=== PATIENT | male | born 1965 | race Two or more races ===

== ENCOUNTER 2019-07-18 07:11 | Outpatient (CLI) | payer OTHER ==
[~2019-07-18] VITALS: Ht 152.4 cm; Wt 78.0 kg
== END 2019-07-18 12:54 | disposition home or self-care (01) ==
LOC: OFIC 805 07:11
DX: H70.12 Chronic mastoiditis, left ear (principal); H61.23 Impacted cerumen, bilateral; H90.41 Sensorineural hearing loss, unilateral, right ear, with unrestricted hearing on the contralateral side; H90.A32 Mixed conductive and sensorineural hearing loss, unilateral, left ear with restricted hearing on the contralateral side; J31.0 Chronic rhinitis

== ENCOUNTER 2020-12-07 10:12 | Emergency (ER) | payer OTHER ==
[~2020-12-07] VITALS: Ht 160 cm; Wt 78.0 kg
[2020-12-07] MEDS ORDERED: TOPROL XL50 M1 (10:42)
[2020-12-07] MEDS ORDERED: SYNTHROID88 MCG (10:42)
[2020-12-07] MEDS ORDERED: CHILDREN'S ASPI81 MG (10:43)
== END 2020-12-07 18:03 | disposition home or self-care (01) ==
LOC: ER 10:12
DX: K52.89 Other specified noninfective gastroenteritis and colitis (principal); R10.33 Periumbilical pain; Z03.818 Encounter for observation for suspected exposure to other biological agents ruled out

== ENCOUNTER → 2022-06-21 | Outpatient (CLI) | payer OTHER ==
[~2022-06-21] MED LIST: CHILDREN'S ASPI81 MG; SYNTHROID88 MCG; TOPROL XL50 M1
== END | disposition home or self-care (01) ==
LOC: NUCLEAR 07:27
PROVIDERS: ATTEND Internal Medicine Cardiovascular Disease
DX: I10 Essential (primary) hypertension (principal)